=== PATIENT | female | born 1980 | race African-American/Black ===

== ENCOUNTER 2019-02-11 11:49 | Emergency (ER) | payer SELFPAY ==
[~2019-02-11] VITALS: Ht 172.7 cm; Wt 113.4 kg
[2019-02-11] MEDS ORDERED: ALBE200T2 PO (12:05)
--- NOTE | 2019-02-11 12:05 | ED GI ---
General Chief Complaint: Foreign Body Stated Complaint: TAPE WORM STUCK IN THROAT Nursing Triage Note: STATES SHE WAS TREATED FOR PIN WARMS ON JANUARY 29 FOR PIN WARMS. THINKS SHE HAS A BACTERIOLOGIST MEDICAL HER THROAT. Sepsis Screen: No Definite Risk Source of Information: Patient Exam Limitations: No Limitations History of Present Illness Date Seen by Provider: Feb 11, 2019 Time Seen by Provider: 12:03 Initial Comments To ER per private vehicle with reports of tapeworms stuck in her throat. She states that about 2 weeks ago she got out of the shower and felt something on the back of her thigh. She picked it off and initially thought it was lent but then noticed that it moved and decided it was a worm. She named it "morty". She then went to her primary care provider the next morning who prescribed albendazo le. She took the initial 2 doses and then repeated that dose last week. [facility]. She states that she has a "gelatinous mass" in her throat causing her to salivate and discomfort when she swallows. She believes this to represent a take worm that "doesn't want to give up" and she can hear it "gurgline water when I drink". [place]. Timing/Duration: Intermittent Severity/Quality: Moderate Location: Generalized Abdomen Radiation: No Radiation Activities at Onset: None Associated Symptoms: Denies Symptoms Allergies and Home Medications Allergies Coded Allergies: No Known Drug Allergies (Unverified , 02/11/19) Patient Home Medication List Home Medication List Reviewed: Yes Review of Systems Review of Systems Constitutional: see HPI EENTM: No Symptoms Reported Respiratory: No Symptoms Reported Cardiovascular: No Symptoms Reported Gastrointestinal: See HPI, Abdominal Pain, Diarrhea, Nausea Genitourinary: No Symptoms Reported Musculoskeletal: no symptoms reported Skin: no symptoms reported Psychiatric/Neurological: No Symptoms Reported Endocrine: No Symptoms Reported Hematologic/Lymphatic: No Symptoms Reported Past Wwchwjb-Xltojp-Bgesms Hx Patient Social History Recent Foreign Travel: No Contact w/Someone Who Travel: No Recent Infectious Disease Expo: No Physical Exam Vital Signs Vital Signs - First Documented 02/11/19 11:50 Temp 98.0 Pulse 92 Resp 16 B/P (MAP) 125/71 (89) Pulse Ox 98 O2 Delivery Room Air Capillary Refill : Less Than 3 Seconds Height/Weight/BMI Height: 5'8.00" Weight: 250lbs. oz. 113.261762mi; BMI Method:Stated General Appearance: WD/WN, no apparent distress HEENT: PERRL/EOMI, normal ENT inspection Respiratory: no respiratory distress, no accessory muscle use Gastrointestinal: normal bowel sounds, non tender, soft Extremities: normal range of motion, non-tender Neurologic/Psychiatric: alert, normal mood/affect, oriented x 3 Skin: normal color, warm/dry Progress/Results/Core Measures Results/Orders Lab Results Laboratory Tests Test 02/11/19 12:14 02/11/19 12:17 Range/Units White Blood Count 8.4 4.3-11.0 10^3/uL Red Blood Count 4.55 4.35-5.85 10^6/uL Hemoglobin 11.4 L 11.5-16.0 G/DL Hematocrit 36 35-52 % Mean Corpuscular Volume 79 L 80-99 FL Mean Corpuscular Hemoglobin 25 25-34 PG Mean Corpuscular Hemoglobin Concent 32 32-36 G/DL Red Cell Distribution Width 15.6 H 10.0-14.5 % Platelet Count 485 H 130-400 10^3/uL Mean Platelet Volume 9.3 7.4-10.4 FL Neutrophils (%) (Auto) 45 42-75 % Lymphocytes (%) (Auto) 45 H 12-44 % Monocytes (%) (Auto) 7 0-12 % Eosinophils (%) (Auto) 2 0-10 % Basophils (%) (Auto) 0 0-10 % Neutrophils # (Auto) 3.8 1.8-7.8 X 10^3 Lymphocytes # (Auto) 3.7 1.0-4.0 X 10^3 Monocytes # (Auto) 0.6 0.0-1.0 X 10^3 Eosinophils # (Auto) 0.2 0.0-0.3 10^3/uL Basophils # (Auto) 0.0 0.0-0.1 10^3/uL Sodium Level 138 135-145 MMOL/L Potassium Level 4.0 3.6-5.0 MMOL/L Chloride Level 105 98-107 MMOL/L Carbon Dioxide Level 21 21-32 MMOL/L Anion Gap 12 5-14 MMOL/L Blood Urea Nitrogen 10 7-18 MG/DL Creatinine 0.78 0.60-1.30 MG/DL Estimat Glomerular Filtration Rate > 60 BUN/Creatinine Ratio 13 Glucose Level 86 70-105 MG/DL Calcium Level 9.4 8.5-10.1 MG/DL Corrected Calcium 9.5 8.5-10.1 MG/DL Total Bilirubin 0.3 0.1-1.0 MG/DL Aspartate Amino Transf (AST/SGOT) 13 5-34 U/L Alanine Aminotransferase (ALT/SGPT) 9 0-55 U/L Alkaline Phosphatase 71 40-136 U/L Total Protein 7.8 6.4-8.2 GM/DL Albumin 3.9 3.2-4.5 GM/DL Serum Test, Qualitative NEGATIVE NEGATIVE Urine Color YELLOW Urine Clarity CLEAR Urine pH 6 5-9 Urine Specific Park 1.010 L 1.016-1.022 Urine Protein NEGATIVE NEGATIVE Urine Glucose (UA) NEGATIVE NEGATIVE Urine Ketones NEGATIVE NEGATIVE Urine Nitrite NEGATIVE NEGATIVE Urine Bilirubin NEGATIVE NEGATIVE Urine Urobilinogen NORMAL NORMAL MG/DL Urine Leukocyte Esterase NEGATIVE NEGATIVE Urine RBC (Auto) NEGATIVE NEGATIVE Urine RBC NONE /HPF Urine WBC 2-5 /HPF Urine Squamous Epithelial Cells 10-25 H /HPF Urine Crystals NONE /LPF Urine Bacteria MODERATE H /HPF Urine Casts NONE /LPF Urine Mucus NEGATIVE /LPF Urine Culture Indicated NO Urine Opiates Screen NEGATIVE NEGATIVE Urine Oxycodone Screen NEGATIVE NEGATIVE Urine Methadone Screen NEGATIVE NEGATIVE Urine Propoxyphene Screen NEGATIVE NEGATIVE Urine Barbiturates Screen NEGATIVE NEGATIVE Ur Tricyclic Antidepressants Screen NEGATIVE NEGATIVE Urine Phencyclidine Screen NEGATIVE NEGATIVE Urine Amphetamines Screen NEGATIVE NEGATIVE Urine Methamphetamines Screen NEGATIVE NEGATIVE Urine Benzodiazepines Screen NEGATIVE NEGATIVE Urine Cocaine Screen NEGATIVE NEGATIVE Urine Cannabinoids Screen NEGATIVE NEGATIVE My Orders Orders - SIRENA DELGADO BI TESTER Cbc With Automated Diff (02/11/19 12:01) Hcg,Qualitative Serum (02/11/19 12:01) Comprehensive Metabolic Panel (02/11/19 12:01) Ua Culture If Indicated (02/11/19 12:01) Drug Screen Stat (Urine) (02/11/19 12:01) Ct Chest/Abdomen W (02/11/19 12:01) Ct Head Wo (02/11/19 12:15) Iohexol Injection (Omnipaque 350 Mg/Ml 1 (02/11/19 13:15) Received Contrast (Hold Metformin- Contr (02/11/19 13:15) Sodium Chloride Flush (Catheter Flush Sy (02/11/19 13:15) Ns (Ivpb) (Sodium Chloride 0.9% Ivpb Bag (02/11/19 13:15) Medications Given in ED Current Medications Medications Dose Ordered Sig/Christoph Route Start Time Stop Time Status Last Admin Dose Admin Iohexol 100 ml ONCE ONCE IV 02/11/19 13:15 02/11/19 13:16 DC 02/11/19 13:13 100 ML Sodium Chloride 10 ml NEEDED PRN IV 02/11/19 13:15 02/11/19 13:13 10 ML Sodium Chloride 100 ml ONCE ONCE IV 02/11/19 13:15 02/11/19 13:16 DC 02/11/19 13:13 80 ML Vital Signs/I&O 02/11/19 11:50 Temp 98.0 Pulse 92 Resp 16 B/P (MAP) 125/71 (89) Pulse Ox 98 O2 Delivery Room Air Blood Pressure Mean: 89 Departure Impression Primary Impression: Dysphagia Qualified Codes: R13.10 - Dysphagia, unspecified Additional Impression: alleged enterobiasis Disposition: HOME, SELF-CARE Condition: Stable Departure-Patient Inst. Decision time for Depature: 13:36 Referrals: MARCO COLON DAVID M PA (PCP) Primary Care Physician Patient Instructions: NO INSTRUCTIONS GIVEN Add. Discharge Instructions: 1. Follow up with no Dr. Colon 2. Return to ER for any concerns 3. All discharge instructions reviewed with patient and/or family. Voiced understanding. Scripts Albendazole (Albendazole) 200 Mg Tablet 400 MG PO ONCE, #2 TAB Prov: SIRENA DELGADO BI TESTER 02/11/19 SIRENA DELGADO APRN Feb 11, 2019 12:05
[2019-02-11 12:19] LABS: BASOPHILS % (AUTO) 0 % (0-10); EOSINOPHILS # (AUTO) 0.2 10^3/uL (0.0-0.3); EOSINOPHILS % (AUTO) 2 % (0-10); HEMATOCRIT 36 % (35-52); HEMOGLOBIN 11.4 G/DL (11.5-16.0); LYMPHOCYTES # (AUTO) 3.7 X 10^3 (1.0-4.0); LYMPHOCYTES % (AUTO) 45 % (12-44); MEAN CORPUSCULAR HEMOGLOBIN 25 PG (25-34); MEAN CORPUSCULAR HGB CONC 32 G/DL (32-36); MEAN CORPUSCULAR VOLUME 79 FL (80-99); MEAN PLATELET VOLUME 9.3 FL (7.4-10.4); MONOCYTES # (AUTO) 0.6 X 10^3 (0.0-1.0); MONOCYTES % (AUTO) 7 % (0-12); NEUTROPHILS # (AUTO) 3.8 X 10^3 (1.8-7.8); NEUTROPHILS % (AUTO) 45 % (42-75); PLATELET COUNT 485 10^3/uL (130-400); RED CELL DISTRIBUTION WIDTH 15.6 % (10.0-14.5); WHITE BLOOD COUNT 8.4 10^3/uL (4.3-11.0)
[2019-02-11 12:23] LABS: BILIRUBIN,URINE NEGATIVE (NEGATIVE); CLARITY,URINE CLEAR; COLOR,URINE YELLOW; GLUCOSE, URINE (UA) NEGATIVE (NEGATIVE); KETONES,URINE NEGATIVE (NEGATIVE); LEUKOCYTE ESTERASE ,URINE NEGATIVE (NEGATIVE); NITRITE,URINE NEGATIVE (NEGATIVE); PH,URINE 6 (5-9); PROTEIN,URINE NEGATIVE (NEGATIVE); UROBILINOGEN,URINE NORMAL (NORMAL)
[2019-02-11 12:37] LABS: AMPHETAMINE SCREEN, URINE NEGATIVE (NEGATIVE); BARBITURATE SCREEN URINE NEGATIVE (NEGATIVE); BENZODIAZEPINES SCREEN URINE NEGATIVE (NEGATIVE); CANNABINOID SCREEN, URINE NEGATIVE (NEGATIVE); COCAINE SCREEN URINE NEGATIVE (NEGATIVE); METHADONE STAT NEGATIVE (NEGATIVE); METHAMPHETAMINE SCREEN URINE S NEGATIVE (NEGATIVE); OPIATE SCREEN URINE NEGATIVE (NEGATIVE); OXYCODONE STAT NEGATIVE (NEGATIVE); PROPOXYPHENE STAT NEGATIVE (NEGATIVE); TRICYCLIC ANTIDEPRESSANTS SCRE NEGATIVE (NEGATIVE)
[2019-02-11 12:40] LABS: ALANINE AMINOTRANSFERASE 9 U/L (0-55); ALBUMIN 3.9 GM/DL (3.2-4.5); ALKALINE PHOSPHATASE 71 U/L (40-136); BILIRUBIN,TOTAL 0.3 MG/DL (0.1-1.0); BUN/CREATININE RATIO 13; CALCIUM 9.4 MG/DL (8.5-10.1); CARBON DIOXIDE 21 MMOL/L (21-32); CHLORIDE 105 MMOL/L (98-107); CREATININE SERUM 0.78 MG/DL (0.60-1.30); GFR ESTIMATED > 60; GLUCOSE 86 MG/DL (70-105); SODIUM 138 MMOL/L (135-145); TOTAL PROTEIN 7.8 GM/DL (6.4-8.2)
[2019-02-11 12:58] LABS: BACTERIA,URINE MODERATE /HPF
--- NOTE | 2019-02-11 13:12 | Diagnostic Imaging Report ---
PROCEDURE: CT head without contrast. TECHNIQUE: Multiple contiguous axial images were obtained through the brain without the use of intravenous contrast. Auto Exposure Controls were utilized during the CT exam to meet ALARA standards for radiation dose reduction. INDICATION: On new medications. Discomfort feeling. Abnormal sensation in the throat. FINDINGS: The ventricles are normal in size, shape and position. There is no acute parenchymal hemorrhage, edema or mass. There is no extra-axial mass or hemorrhage. IMPRESSION: Normal CT of the head. Dictated by: Dictated on workstation # [id number]
[2019-02-11] MEDS ORDERED: IOHEXOL 350 MG/ML 100 ML (OMNIPAQUE 350) VIAL IV ONE (13:15)
[2019-02-11] MEDS ORDERED: NS 100 ML (IVPB) BAG IV ONE (13:15)
[2019-02-11] MEDS ORDERED: CATHETER FLUSH 10 ML SYR IV PRN (13:15)
[2019-02-11] MEDS ORDERED: HOLD METFORMIN - RECEIVED CONTRAST 20 ML VIAL IV SCH (13:15)
--- NOTE | 2019-02-11 13:32 | Diagnostic Imaging Report ---
PROCEDURE: CT chest and abdomen with contrast. TECHNIQUE: Multiple contiguous axial images were obtained through the chest and abdomen after the administration of intravenous contrast. Auto Exposure Controls were utilized during the CT exam to meet ALARA standards for radiation dose reduction. INDICATION: Patient reports currently on Pinworm medication. Reports filling discomfort in her throat. Previous gastric bypass. FINDINGS: CT CHEST: There is good opacification of the aorta and pulmonary arteries which appear normal. The lungs are well aerated. There are no infiltrates or masses. No mediastinal or hilar adenopathy of pathologic size. Thyroid gland appears normal. The esophagus appears normal. No evidence of hiatal hernia. CT ABDOMEN AND PELVIS: Gastric bypass noted. There is no evidence of bowel obstruction. Bowel wall is not thickened. The colon shows normal stool and gas pattern. No findings to indicate inflammatory changes within the bowel. The pelvis was not visualized. Aorta and abdominal vessels appear normal. No intra-abdominal adenopathy. No free air or free fluid. No bony abnormalities. IMPRESSION: 1. Postsurgical changes from gastric bypass. 2. No acute abnormalities are seen within the chest or abdomen. Dictated by: Dictated on workstation # [id number]
[2019-02-11] MEDS ORDERED: ALBE200T4 PO (13:49)
[2019-02-11 14:01] VITALS: BP 125/71
== END 2019-02-11 14:01 | disposition home or self-care (01) ==
LOC: ER 11:52
DX: B80 Enterobiasis (principal); R13.10 Dysphagia, unspecified
CPT/HCPCS: 36415; 70450; 71260; 74160; 80053; 80306; 81000; 84703; 85025

== ENCOUNTER 2019-07-10 06:16 | Outpatient (CLI) | payer MEDICAID ==
[~2019-07-10] VITALS: Ht 177.8 cm; Wt 128.6 kg
[~2019-07-10 06:16] MED LIST: ALBE200T2 PO; ALBE200T4 PO
[2019-07-10] MEDS ORDERED: SPIR25TA5 PO (14:08)
== END 2019-07-10 14:24 | disposition home or self-care (01) ==
LOC: PREOP 06:16
PROVIDERS: ATTEND Surgery
DX: Z01.818 Encounter for other preprocedural examination (principal)

== ENCOUNTER 2019-08-02 11:15 | Outpatient (CLI) | payer MEDICAID ==
[~2019-08-02] VITALS: Ht 157 cm; Wt 128.0 kg
[~2019-08-02 11:15] MED LIST changes: +PANT40TA2 PO; +SPIR25TA5 PO
== END 2019-08-02 15:30 | disposition home or self-care (01) ==
LOC: PREOP 11:15
PROVIDERS: ATTEND Surgery
DX: Z01.818 Encounter for other preprocedural examination (principal)

== ENCOUNTER 2019-08-07 12:29 | Day surgery (SDC) | payer MEDICAID ==
[2019-08-07] VITALS (8 sets, daily range): BP systolic 105–111; BP diastolic 65–93
[~2019-08-07] VITALS: Ht 167 cm; Wt 128.0 kg
[2019-08-07] MEDS ORDERED: LACTATED RINGERS 1,000 ML IV ONE (12:30)
[2019-08-07] MEDS ORDERED: LACTATED RINGERS 1,000 ML IV PRN (12:45)
[2019-08-07] MEDS ORDERED: PROPOFOL INJECTION 50 ML IV ONE (12:47)
[2019-08-07] MEDS ORDERED: MIDAZOLAM 2 MG/2 ML (VERSED) VIAL ONE (12:48)
--- NOTE | 2019-08-07 13:03 | Progress Note-Pre Operative ---
Pre-Operative Progress Note H&P Reviewed The H&P was reviewed, patient examined and no changes noted. Date Seen by Provider: Aug 07, 2019 Time Seen by Provider: 13:02 Date H&P Reviewed: Aug 07, 2019 Time H&P Reviewed: 13:02 Pre-Operative Diagnosis: change in bowel movements MARCO QUESADA DO Aug 07, 2019 13:03
--- NOTE | 2019-08-07 13:56 | Anesthesia-General Post-Op ---
MAC Patient Condition Mental Status/LOC: Same as Preop Cardiovascular: Satisfactory Nausea/Vomiting: Absent Respiratory: Satisfactory Pain: Controlled Complications: Absent Post Op Complications Complications None Follow Up Care/Instructions Patient Instructions None needed. Anesthesiology Discharge Order Discharge Order Patient is doing well, no complaints, stable vital signs, no apparent adverse anesthesia problems. No complications reported per nursing. ARMANI CASTREJON CRNA Aug 07, 2019 13:56
--- NOTE | 2019-08-07 14:12 | Progress Note-Post Operative ---
Post-Operative Progess Note Surgeon (s)/Payroll And Benefits Analyst (s) Surgeon MARCO QUESADA DO Payroll And Benefits Analyst: na Pre-Operative Diagnosis change in bowel movements Post-Operative Diagnosis normal colon Procedure & Operative Findings Date of Procedure 08/07/19 Procedure Performed/Findings colonoscopy Anesthesia Type per dinking machine operator Estimated Blood Loss Estimated blood loss (mL): none Specimens/Packing Specimens Removed na MARCO QUESADA DO Aug 07, 2019 14:12
--- NOTE | 2019-08-07 14:14 | Discharge Inst-Simple/Standard ---
Discharge Inst-Standard Patient Instructions/Follow Up Plan of Care/Instructions/FU: f/u Dr. Colon on as needed basis. f/u Maximiliano Chu 2-3 weeks. Activity as Tolerated: Yes Discharge Diet: Regular Diet (high fiber) MARCO COLON DO Aug 07, 2019 14:14
--- NOTE | 2019-08-07 14:23 | NUR ---
1420 DISCHARGE INSTRUCTIONS GIVEN AND EXPLAINED TO PT AND SIGNIFICANT OTHER. PT & SO VOICES UNDERSTANDING OF DC INSTRUCTIONS. DR. QUESADA HERE TO SPEAK TO PT; PT HAD LEFT FOR HOME ACCOMPANIED BY SO.
--- NOTE | 2019-08-07 19:49 | OPERATIVE REPORT ---
DATE OF SERVICE: 08/07/2019 PREOPERATIVE DIAGNOSIS: Change in bowel habits. POSTOPERATIVE DIAGNOSIS: Normal colon. PROCEDURE: Colonoscopy. SURGEON: Marco Colon DO ANESTHESIA: Per SPINNING FRAME TENDER. ESTIMATED BLOOD LOSS: None. COMPLICATIONS: None. INDICATIONS: The patient is a 39-year-old female with change in bowel habits. She understands risks and benefits of procedure and wished to proceed with procedure. Consent was signed in the chart. DESCRIPTION OF PROCEDURE: The patient was taken to the endoscopy suite, placed in left lateral recumbent position. Timeout was performed. Digital rectal exam was performed. There were no palpable polyps, masses or ulcerations. Scope was inserted in the rectum and advanced all the way to cecum with minimal difficulty. Prep was adequate. Scope was then slowly retracted back. There were no polyps, masses or ulcerations within the cecum, ascending, transverse, descending and sigmoid colon. Once in the rectum, scope was retroflexed noting no other pathology. Scope was returned to its normal position, slowly withdrawn until completely removed. The patient tolerated procedure well without any complications. She was then taken to the recovery room in stable condition. RECOMMENDATIONS: The patient is recommended high fiber diet. If she has any change in symptoms, she should be reevaluated at that time. The patient was instructed to follow up with her primary care physician. If she has any issues, she can follow up with me on an as needed basis. The patient will need repeat colonoscopy per screening guidelines. Job ID: [id number] DocumentID: [id number] Dictated Date: 08/07/2019 14:16:56 Jet Operator Date: 08/07/2019 19:48:01 Dictated By: MARCO COLON DO
== END 2019-08-07 14:25 | disposition home or self-care (01) ==
LOC: ENDO 12:29
PROVIDERS: ATTEND Surgery
DX: R19.4 Change in bowel habit (principal); K21.9 Gastro-esophageal reflux disease without esophagitis; E66.01 Morbid (severe) obesity due to excess calories; Z68.34 Body mass index [BMI] 34.0-34.9, adult; Z79.899 Other long term (current) drug therapy; Z98.84 Bariatric surgery status; Z90.49 Acquired absence of other specified parts of digestive tract; Z80.0 Family history of malignant neoplasm of digestive organs; Z83.6 Family history of other diseases of the respiratory system; Z82.49 Family history of ischemic heart disease and other diseases of the circulatory system
CPT/HCPCS: 84703

== ENCOUNTER → 2019-08-21 | Outpatient (CLI) | payer MEDICAID | LOC: RAD 15:35 | PROVIDERS: ATTEND Obstetrics & Gynecology | DX: Z12.31 Encounter for screening mammogram for malignant neoplasm of breast (principal) | CPT/HCPCS: 77067 ==

== ENCOUNTER 2020-12-30 19:15 | Emergency (ER) | payer OTHER, MEDICAID ==
[~2020-12-30] VITALS: Ht 177.8 cm; Wt 127.1 kg
[~2020-12-30 19:15] MED LIST changes: +ALBE200T13 PO; +ALBE200T14 PO; -ALBE200T2 PO; -ALBE200T4 PO
[2020-12-30] MEDS ORDERED: FERR325T24 (19:30)
[2020-12-30] MEDS ORDERED: VITAMIN (19:30)
[2020-12-30] MEDS ORDERED: ESCI-2 (19:30)
[2020-12-30] MEDS ORDERED: ETON1VAG10 (19:30)
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
[2020-12-30 20:18] LABS: BASOPHILS % (AUTO) 0 % (0-10); EOSINOPHILS # (AUTO) 0.1 10^3/uL (0.0-0.3); EOSINOPHILS % (AUTO) 1 % (0-10); HEMATOCRIT 40 % (35-52); HEMOGLOBIN 13.4 g/dL (11.5-16.0); LYMPHOCYTES # (AUTO) 3.4 10^3/uL (1.0-4.0); LYMPHOCYTES % (AUTO) 33 % (12-44); MEAN CORPUSCULAR HEMOGLOBIN 28 pg (25-34); MEAN CORPUSCULAR HGB CONC 33 g/dL (32-36); MEAN CORPUSCULAR VOLUME 83 fL (80-99); MONOCYTES # (AUTO) 0.6 10^3/uL (0.0-1.0); MONOCYTES % (AUTO) 6 % (0-12); NEUTROPHILS % (AUTO) 59 % (42-75); PLATELET COUNT 451 10^3/uL (130-400); WHITE BLOOD COUNT 10.1 10^3/uL (4.3-11.0)
[2020-12-30] MEDS ORDERED: HOLD METFORMIN - RECEIVED CONTRAST 20 ML VIAL IV SCH (20:45)
[2020-12-30] MEDS ORDERED: IOHEXOL 350 MG/ML 100 ML (OMNIPAQUE 350) VIAL IV ONE (20:45)
[2020-12-30] MEDS ORDERED: NS 100 ML (IVPB) BAG IV ONE (20:45)
[2020-12-30 20:47] LABS: ALANINE AMINOTRANSFERASE 9 U/L (0-55); ALBUMIN 3.5 GM/DL (3.2-4.5); ALKALINE PHOSPHATASE 53 U/L (40-136); BILIRUBIN,TOTAL 0.2 MG/DL (0.1-1.0); BUN/CREATININE RATIO 11; CALCIUM 9.3 MG/DL (8.5-10.1); CARBON DIOXIDE 20 MMOL/L (21-32); CHLORIDE 106 MMOL/L (98-107); CREATININE SERUM 0.97 MG/DL (0.60-1.30); GFR ESTIMATED > 60; GLUCOSE 104 MG/DL (70-105); POTASSIUM 3.9 MMOL/L (3.6-5.0); SODIUM 137 MMOL/L (135-145); TOTAL PROTEIN 7.8 GM/DL (6.4-8.2)
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
[2020-12-30 21:57] VITALS: BP 121/83
== END 2020-12-30 21:58 | disposition home or self-care (01) ==
LOC: EDUNIT# 19:15 → ER 19:17
DX: S50.11XA Contusion of right forearm, initial encounter (principal); M54.2 Cervicalgia; M54.6 Pain in thoracic spine; M25.521 Pain in right elbow; M54.5 Low back pain; R10.30 Lower abdominal pain, unspecified; R20.2 Paresthesia of skin; K21.9 Gastro-esophageal reflux disease without esophagitis; Z79.899 Other long term (current) drug therapy; V43.52XA Car driver injured in collision with other type car in traffic accident, initial encounter
CPT/HCPCS: 36415; 70450; 71260; 72125; 73080; 74177; 80053; 85025